=== PATIENT | male | born 1965 | race Caucasian/White ===

== ENCOUNTER 2016-12-20 11:01 | Day surgery (SDC) | payer MEDICAID ==
[~2016-12-20] VITALS: Ht 180.3 cm; Wt 115.5 kg
[2016-12-20] MEDS ORDERED: MIDAZOLAM HCL 2 MG/2 ML VIAL IVP ONE (11:02)
[2016-12-20] MEDS ORDERED: SODIUM CHLORIDE 0.9% 1,000 ML IV ONE (11:09)
[2016-12-20] MEDS ORDERED: ESOM20CA31 PO (13:03)
[2016-12-20] MEDS ORDERED: HYDR25TA PO (13:03)
[2016-12-20] MEDS ORDERED: ATOR40TA28 PO (13:03)
[2016-12-20] MEDS ORDERED: LISI-662 PO (13:03)
== END 2016-12-20 13:10 | disposition home or self-care (01) ==
LOC: SURGERY 11:01
PROVIDERS: ATTEND Internal Medicine Gastroenterology
DX: K63.5 Polyp of colon (principal); K57.30 Diverticulosis of large intestine without perforation or abscess without bleeding; K64.8 Other hemorrhoids; G47.33 Obstructive sleep apnea (adult) (pediatric); E66.3 Overweight; F19.10 Other psychoactive substance abuse, uncomplicated; M54.9 Dorsalgia, unspecified; Z88.0 Allergy status to penicillin; Z72.89 Other problems related to lifestyle; Z98.890 Other specified postprocedural states; Z87.19 Personal history of other diseases of the digestive system
CPT/HCPCS: 88305; J2250; J7030